=== PATIENT | female | born 1975 | race Caucasian/White ===

== ENCOUNTER 2017-09-07 22:03 | Emergency (ER) | payer OTHER, SELFPAY ==
[2017-09-07 22:58] LABS: Urine Blood 2+ (NEG); Urine Glucose NEGATIVE (NEG); Urine Protein NEGATIVE (NEG); Urine pH 5.5 (5.0-7.0)
[2017-09-07 23:00] LABS: Absolute Lymphocytes (CBC) 2.2 K/uL (0.7-4.9); Absolute Monocytes 0.5 K/uL (0.1-1.3); Absolute Neutrophil 6.2 K/uL (1.8-8.0); Basophils % 0.7 % (0-1.3); Eosinophils % 1.1 % (0-4.4); Hematocrit 43.1 % (36.0-45.0); Lymphocytes % 24.1 % (15.3-44.8); MCH 34.9 pg (27.0-35.0); MCV 100.8 fL (80-100); MPV 9.6 fL (7.6-11.3); Monocytes % 5.9 % (3.3-12.3); RBC Red Blood Cell Count 4.27 M/uL (3.86-4.86)
[2017-09-07 23:12] LABS: Potassium 3.2 mmol/L (3.5-5.1)
[2017-09-07] MEDS ORDERED: POTASSIUM 25 MEQ EFFERV TAB ONE (23:19)
--- NOTE | 2017-09-07 23:19 | EDPHYS ---
Physician Documentation [facility] Name: Lorraine Amato Age: 42 yrs Sex: Female : 1975 Arrival Date: 09/07/2017 Time: 22:09 Bed 8 Private MD: ED Physician Larry Kc HPI: 09/07 23:14 This 42 yrs old Female presents to ER via Ambulatory with complaints of pm1 Vaginal Bleeding. 23:14 The patient presents with vaginal bleeding that is light, with no clots. Onset: The pm1 symptoms/episode began/occurred 1 week(s) ago. Modifying factors: The symptoms are alleviated by nothing, the symptoms are aggravated by nothing. Associated signs and symptoms: Pertinent positives: cramping, Pertinent negatives: dysuria, fever, urinary frequency, vaginal discharge. Severity of symptoms: in the emergency department the symptoms have improved. The patient is sexually active. The patient has experienced similar episodes in the past, a few times. patient with possible onset of menopause. Patient with onset of menses last month that only last 2 days. Today patient's menses started off heavy with clots one week ago and now it is light. Patient reports cramping to suprapubic area. 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 - Social history:: Smoking status: Patient uses tobacco products, smokes 1.5 packs per day. - Ebola Screening: : No symptoms or risks identified at this time. ROS: 23:14 Positive for vaginal bleeding, menstrual abnormality, Negative for flank pain, pm1 burning with urination. 23:14 Constitutional: Negative for fever, chills, and weight loss, Eyes: Negative for injury, pain, redness, and discharge, ENT: Negative for injury, pain, and discharge, Neck: Negative for injury, pain, and swelling, Cardiovascular: Negative for chest pain, palpitations, and edema, Respiratory: Negative for shortness of breath, cough, wheezing, and pleuritic chest pain. 23:14 Back: Negative for injury and pain, : Negative for injury, bleeding, discharge, and swelling, MS/Extremity: Negative for injury and deformity, Skin: Negative for injury, rash, and discoloration, Neuro: Negative for headache, weakness, numbness, tingling, and seizure. 23:14 Abdomen/GI: Positive for abdominal cramps, of the suprapubic area, Negative for nausea, vomiting, and diarrhea. Exam: 23:14 Constitutional: This is a well developed, well nourished patient who is awake, alert, pm1 and in no acute distress. Head/Face: Normocephalic, atraumatic. Neck: Trachea midline, no thyromegaly or masses palpated, and no cervical lymphadenopathy. Supple, full range of motion without nuchal rigidity, or vertebral point tenderness. No Meningismus. Chest/axilla: Normal chest wall appearance and motion. Nontender with no deformity. No lesions are appreciated. Cardiovascular: Regular rate and rhythm with a normal S1 and S2. No gallops, murmurs, or rubs. Normal PMI, no JVD. No pulse deficits. Respiratory: Lungs have equal breath sounds bilaterally, clear to auscultation and percussion. No rales, rhonchi or wheezes noted. No increased work of breathing, no retractions or nasal flaring. Abdomen/GI: Soft, non-tender, with normal bowel sounds. No distension or tympany. No guarding or rebound. No evidence of tenderness throughout. Back: No spinal tenderness. No costovertebral tenderness. Full range of motion. Skin: Warm, dry with normal turgor. Normal color with no rashes, no lesions, and no evidence of cellulitis. MS/ Extremity: Pulses equal, no cyanosis. Neurovascular intact. Full, normal range of motion. 23:14 Neuro: Orientation: is normal, Motor: is normal, moves all fours, Gait: is steady, at a normal pace, without difficulty. Vital Signs: 22:30 BP 146 / 96; Pulse 92; Resp 18; Temp 99.2(O); Pulse Ox 97% on R/A; Weight 86.18 kg; tl2 Height 5 ft. 0 in. (152.40 cm); Pain 8/10; 23:39 BP 140 / 87; Pulse 78; Resp 16; Temp 99; Pulse Ox 98% on R/A; Pain 0/10; tl1 22:30 Body Mass Index 37.11 (86.18 kg, 152.40 cm) tl2 MDM: 22:20 Patient medically screened. pm1 23:18 Data reviewed: vital signs. Data interpreted: Pulse oximetry: on room air is 97 %. pm1 Interpretation: normal. Counseling: I had a detailed discussion with the patient and/or guardian regarding: the historical points, exam findings, and any diagnostic results supporting the discharge/admit diagnosis, lab results, the need for outpatient follow up, for definitive care, an OB/Gyne specialist, to return to the emergency department if symptoms worsen or persist or if there are any questions or concerns that arise at home. 09/07 22:34 Order name: Urine Dipstick--Ancillary (enter results); Complete Time: 23:13 ms 09/07 22:34 Order name: Urine --Ancillary (enter results); Complete Time: 23:13 ms 09/07 22:39 Order name: Basic Metabolic Panel; Complete Time: 23:13 pm1 09/07 22:39 Order name: CBC with Diff; Complete Time: 23:13 pm1 09/07 22:39 Order name: IV Saline Lock; Complete Time: 22:49 pm1 09/07 22:39 Order name: Labs collected and sent; Complete Time: 22:49 pm1 Administered Medications: 23:18 Drug: Potassium Effervescent Tablet 50 mEq Route: PO; tl2 23:38 Follow up: Response: No adverse reaction; No change in condition tl1 23:23 Drug: TORadol 30 mg Route: IVP; Site: right antecubital; tl2 23:36 Follow up: Response: No adverse reaction; Pain is decreased tl1 23:36 Not Given (Patient Refused): [place] 5 mg-325 mg 1 tabs PO once tl1 Disposition: 09/08 07:37 Co-signature as Attending Physician, Larry Kc MD I agree with the assessment and carmen plan of care. Disposition: 09/07/17 23:19 Discharged to Home. Impression: Abnormal uterine and vaginal bleeding, unspecified. - Condition is Stable. - Discharge Instructions: Abnormal Uterine Bleeding. - Prescriptions for Tylenol- Codeine #3 300-30 mg Oral Tablet - take 2 tablets by ORAL route every 6 hours As needed; 20 tablet. - Medication Reconciliation Form, Thank You Letter, Antibiotic Education, Prescription Opioid Use form. - Follow up: Emergency Department; When: As needed; Reason: Worsening of condition. Follow up: Skip Bourgeois MD; When: 2 - 3 days; Reason: Recheck today's complaints, Continuance of care, Re-evaluation by your physician. - Problem is new. - Symptoms have improved. Signatures: Dispatcher [employer] EDMS Larry Kc MD MD cha Lasagna, Tonya, RN RN tl1 Cem Gomez NP RADIAGRAPH OPERATOR pm1 Soumya Kumar RN RN tl2 Corrections: (The following items were deleted from the chart) 09/07 23:41 23:19 09/07/2017 23:19 Discharged to Home. Impression: Abnormal uterine and vaginal tl1 bleeding, unspecified. Condition is Stable. Forms are Medication Reconciliation Form, Thank You Letter, Antibiotic Education, Prescription Opioid Use. Follow up: Emergency Department; When: As needed; Reason: Worsening of condition. Follow up: Skip Bourgeois; When: 2 - 3 days; Reason: Recheck today's complaints, Continuance of care, Re-evaluation by your physician. Problem is new. Symptoms have improved. pm1
--- NOTE | 2017-09-07 23:19 | ER ---
Nurse's Notes [facility] Name: Lorraine Amato Age: 42 yrs Sex: Female : 1975 Arrival Date: 09/07/2017 Time: 22:09 Bed 8 Private MD: Diagnosis: Abnormal uterine and vaginal bleeding, unspecified Presentation: 09/07 22:28 Presenting complaint: Patient states: My period in July was late and it was very light tl2 which is abnormal. My period in August has been lasting for 2 weeks and I was bleeding really heavy and it was dark. The bleeding has slowed down but now I'm having pain here (suprapubic) that's constant. Transition of care: patient was not received from another setting of care. Onset of symptoms was September 05, 2017. Risk Assessment: Do you want to hurt yourself or someone else? Patient reports no desire to harm self or others. Initial Sepsis Screen: Does the patient meet any 2 criteria? No. Patient's initial sepsis screen is negative. Does the patient have a suspected source of infection? No. Patient's initial sepsis screen is negative. Care prior to arrival: None. 22:28 Method Of Arrival: Ambulatory tl2 22:28 Acuity: DON 3 tl2 Triage Assessment: 22:30 General: Appears in no apparent distress. uncomfortable, Behavior is calm, cooperative, tl2 appropriate for age. Pain: Complains of pain in suprapubic area Pain does not radiate. Pain currently is 8 out of 10 on a pain scale. Quality of pain is described as pressure, Is continuous. Neuro: Level of Consciousness is awake, alert, obeys commands, Oriented to person, place, time, situation. Cardiovascular: Denies chest pain. Respiratory: Airway is patent Respiratory effort is even, unlabored, Respiratory pattern is regular, symmetrical. GI: No signs and/or symptoms were reported involving the gastrointestinal system. : Reports vaginal bleeding that is brown, moderate flow, Denies pain. Derm: Skin is pink, warm \T\ dry. 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 - Social history:: Smoking status: Patient uses tobacco products, smokes 1.5 packs per day. - Ebola Screening: : No symptoms or risks identified at this time. Screenin:32 Abuse screen: Denies threats or abuse. Nutritional screening: No deficits noted. tl2 Tuberculosis screening: No symptoms or risk factors identified. Fall Risk None identified. Assessment: 22:32 General: see triage assessment. tl2 23:40 Reassessment: Patient and/or family updated on plan of care and expected duration. Pain tl1 level reassessed. Patient is alert, oriented x 3, equal unlabored respirations, skin warm/dry/pink. Patient denies pain at this time. Patient states feeling better. Patient states symptoms have improved. Vital Signs: 22:30 BP 146 / 96; Pulse 92; Resp 18; Temp 99.2(O); Pulse Ox 97% on R/A; Weight 86.18 kg; tl2 Height 5 ft. 0 in. (152.40 cm); Pain 8/10; 23:39 BP 140 / 87; Pulse 78; Resp 16; Temp 99; Pulse Ox 98% on R/A; Pain 0/10; tl1 22:30 Body Mass Index 37.11 (86.18 kg, 152.40 cm) tl2 ED Course: 22:09 Patient arrived in ED. es 22:20 Cem Gomez NP is PHCP. pm1 22:20 Larry Kc MD is Attending Physician. pm1 22:29 Triage completed. tl2 22:30 Arm band placed on right wrist. tl2 22:32 Patient has correct armband on for positive identification. Placed in gown. Bed in low tl2 position. Call light in reach. Side rails up X 1. 22:49 Soumya Kumar RN is Primary Nurse. tl2 22:49 Inserted saline lock: 22 gauge in right antecubital area, using aseptic technique. tl2 Blood collected. 23:18 Skip Bourgeois MD is Referral Physician. pm1 23:39 No provider procedures requiring assistance completed. IV discontinued, intact, tl1 bleeding controlled, No redness/swelling at site. Pressure dressing applied. Administered Medications: 23:18 Drug: Potassium Effervescent Tablet 50 mEq Route: PO; tl2 23:38 Follow up: Response: No adverse reaction; No change in condition tl1 23:23 Drug: TORadol 30 mg Route: IVP; Site: right antecubital; tl2 23:36 Follow up: Response: No adverse reaction; Pain is decreased tl1 23:36 Not Given (Patient Refused): [place] 5 mg-325 mg 1 tabs PO once tl1 Outcome: 23:19 Discharge ordered by MD. pm1 23:40 Discharged to home ambulatory, with family. tl1 23:40 Condition: good 23:40 Discharge instructions given to patient, Instructed on discharge instructions, follow up and referral plans. medication usage, Demonstrated understanding of instructions, follow-up care, medications, Prescriptions given X 1. 23:41 Patient left the ED. tl1 Signatures: Mckenna Hastings Tonya RN RN tl1 Cem Gomez, ANDIE SEE SUPERVISOR pm1 Soumya Kumar RN RN tl2
[2017-09-07] MEDS ORDERED: KETOROLAC 30 MG/ML INJ ONE (23:24)
== END 2017-09-07 23:41 | disposition home or self-care (01) ==
LOC: ER 22:03
DX: N93.9 Abnormal uterine and vaginal bleeding, unspecified (principal); F17.210 Nicotine dependence, cigarettes, uncomplicated
CPT/HCPCS: 36415; 80048; 81003; 81025; 85025; 96374; 99284

== ENCOUNTER 2018-11-20 18:33 | Observation (INO) | payer SELFPAY ==
[2018-11-20] MEDS ORDERED: METOPROLOL TAR 25 MG TAB ONE (19:14)
[2018-11-20] MEDS ORDERED: MORPHINE 4 MG/ML SYR ONE (19:14)
[2018-11-20] MEDS ORDERED: ASPIRIN 81 MG CHEWABLE TABLET ONE (19:14)
[2018-11-20] MEDS ORDERED: ONDANSETRON 4 MG/2 ML VIAL ONE (19:14)
[2018-11-20] MEDS ORDERED: ENOXAPARIN 100 MG/ML SYR SQ ONE (19:15)
[2018-11-20] MEDS ORDERED: FAMOTIDINE 20 MG/2 ML VIAL IV ONE (19:15)
--- NOTE | 2018-11-20 19:28 | EDPHYS ---
Physician Documentation [facility] Name: Lorraine Amato Age: 43 yrs Sex: Female : 1975 Arrival Date: 11/20/2018 Time: 18:36 Bed 7 Private MD: ED Physician Larry Kc HPI: 11/20 19:10 This 43 yrs old Female presents to ER via Ambulatory with complaints of Chest carmen Tightness. 19:10 The patient or guardian reports chest pain that is located primarily in the substernal carmen area. Onset: this morning. The pain radiates to Associated signs and symptoms: Pertinent positives: dizziness, lightheadedness. The chest pain is described as a heaviness, a pressure. Duration: The patient or guardian reports a single episode, that is still ongoing. Modifying factors: The symptoms are alleviated by nothing. the symptoms are aggravated by nothing. Severity of pain: At its worst the pain was moderate in the emergency department the pain has improved mildly. The patient has not experienced similar symptoms in the past. 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 - Social history:: Smoking status: Patient uses tobacco products, smokes one pack cigarettes per day. - Ebola Screening: : Patient denies travel to an Ebola-affected area in the 21 days before illness onset. - Family history:: not pertinent. ROS: 19:10 Constitutional: Negative for fever, chills, and weight loss, Eyes: Negative for injury, carmen pain, redness, and discharge, ENT: Negative for injury, pain, and discharge, Neck: Negative for injury, pain, and swelling, Abdomen/GI: Negative for abdominal pain, nausea, vomiting, diarrhea, and constipation, Back: Negative for injury and pain, : Negative for injury, bleeding, discharge, and swelling, MS/Extremity: Negative for injury and deformity, Skin: Negative for injury, rash, and discoloration, Neuro: Negative for headache, weakness, numbness, tingling, and seizure, Psych: Negative for depression, anxiety, suicide ideation, homicidal ideation, and hallucinations, Allergy/Immunology: Negative for hives, rash, and allergies, Endocrine: Negative for neck swelling, polydipsia, polyuria, polyphagia, and marked weight changes, Hematologic/Lymphatic: Negative for swollen nodes, abnormal bleeding, and unusual bruising. 19:10 Cardiovascular: Positive for chest pain. 19:10 Respiratory: Positive for cough, shortness of breath, at rest. Exam: 19:10 Constitutional: This is a well developed, well nourished patient who is awake, alert, carmen and in no acute distress. Head/Face: Normocephalic, atraumatic. Eyes: Pupils equal round and reactive to light, extra-ocular motions intact. Lids and lashes normal. Conjunctiva and sclera are non-icteric and not injected. Cornea within normal limits. Periorbital areas with no swelling, redness, or edema. ENT: Nares patent. No nasal discharge, no septal abnormalities noted. Tympanic membranes are normal and external auditory canals are clear. Oropharynx with no redness, swelling, or masses, exudates, or evidence of obstruction, uvula midline. Mucous membranes moist. Neck: Trachea midline, no thyromegaly or masses palpated, and no cervical lymphadenopathy. Supple, full range of motion without nuchal rigidity, or vertebral point tenderness. No Meningismus. Chest/axilla: Normal chest wall appearance and motion. Nontender with no deformity. No lesions are appreciated. Cardiovascular: Regular rate and rhythm with a normal S1 and S2. No gallops, murmurs, or rubs. Normal PMI, no JVD. No pulse deficits. Respiratory: Lungs have equal breath sounds bilaterally, clear to auscultation and percussion. No rales, rhonchi or wheezes noted. No increased work of breathing, no retractions or nasal flaring. Abdomen/GI: Soft, non-tender, with normal bowel sounds. No distension or tympany. No guarding or rebound. No evidence of tenderness throughout. Back: No spinal tenderness. No costovertebral tenderness. Full range of motion. Skin: Warm, dry with normal turgor. Normal color with no rashes, no lesions, and no evidence of cellulitis. MS/ Extremity: Pulses equal, no cyanosis. Neurovascular intact. Full, normal range of motion. Neuro: Awake and alert, GCS 15, oriented to person, place, time, and situation. Cranial nerves II-XII grossly intact. Motor strength 5/5 in all extremities. Sensory grossly intact. Cerebellar exam normal. Normal gait. Psych: Awake, alert, with orientation to person, place and time. Behavior, mood, and affect are within normal limits. Vital Signs: 18:50 BP 146 / 80; Pulse 88; Resp 18; Temp 98.4(TE); Pulse Ox 98% on R/A; Weight 89.81 kg tw2 (R); Height 5 ft. 0 in. (152.40 cm) (R); Pain 6/10; 19:30 BP 133 / 57; Pulse 75; Resp 16; Pulse Ox 100% on R/A; aa1 21:09 BP 111 / 70; Pulse 52; Resp 18; Pulse Ox 98% on R/A; Pain 3/10; aa1 22:00 BP 103 / 67; Pulse 55; Resp 16; Temp 98.0; Pulse Ox 98% on R/A; Pain 5/10; aa1 18:50 Body Mass Index 38.67 (89.81 kg, 152.40 cm) tw2 MDM: 19:03 Patient medically screened. [facility] 19:20 Data reviewed: vital signs, nurses notes, lab test result(s), EKG, radiologic studies, [facility] CT scan, plain films. 11/20 19:10 Order name: Basic Metabolic Panel; Complete Time: 19:57 [facility] 11/20 19:10 Order name: CBC with Diff; Complete Time: 20:43 [facility] 11/20 19:10 Order name: LFT's; Complete Time: 19:57 [facility] 11/20 19:10 Order name: Magnesium; Complete Time: 19:57 [facility] 11/20 19:10 Order name: NT PRO-BNP; Complete Time: 19:57 [facility] 11/20 19:10 Order name: PT-INR; Complete Time: 20:43 [facility] 11/20 19:10 Order name: Troponin (emerg Dept Use Only); Complete Time: 19:57 [facility] 11/20 19:10 Order name: XRAY Chest (1 view); Complete Time: 20:43 [facility] 11/20 19:10 Order name: Lipase; Complete Time: 19:57 [facility] 11/20 19:10 Order name: UDS; Complete Time: 22:33 [facility] 11/20 19:10 Order name: CT Aorta for Dissection; Complete Time: 22:33 [facility] 11/20 20:29 Order name: Urine Dipstick--Ancillary (enter results); Complete Time: 20:43 [facility] 11/20 20:29 Order name: Urine --Ancillary (enter results); Complete Time: 20:43 [facility] 11/20 19:10 Order name: EKG; Complete Time: 19:11 [facility] 11/20 19:10 Order name: Cardiac monitoring; Complete Time: 20:02 [facility] 11/20 19:10 Order name: EKG - Nurse/Tech; Complete Time: 20:02 [facility] 11/20 19:10 Order name: IV Saline Lock; Complete Time: 20:03 [facility] 11/20 19:10 Order name: Labs collected and sent; Complete Time: 20:03 [facility] 11/20 19:10 Order name: O2 Per Protocol; Complete Time: 20:03 [facility] 11/20 19:10 Order name: O2 Sat Monitoring; Complete Time: 20:04 [facility] 11/20 19:10 Order name: Urine Dipstick-Ancillary (obtain specimen); Complete Time: 20:02 [facility] 11/20 19:10 Order name: Urine Test (obtain specimen); Complete Time: 20:02 [facility] Administered Medications: 19:20 Drug: Aspirin Chewable Tablet 324 mg Route: PO; aa1 20:20 Follow up: Response: No adverse reaction aa1 19:20 Drug: Lovenox 1 mg/kg Route: Sub-Q; Site: left lower abdomen; aa1 20:20 Follow up: Response: No adverse reaction aa1 19:20 Drug: Lopressor 25 mg Route: PO; aa1 20:20 Follow up: Response: No adverse reaction; No change in condition aa1 19:20 Drug: Pepcid 20 mg Route: IVP; Site: left antecubital; aa1 20:20 Follow up: Response: No adverse reaction; Pain is decreased aa1 19:21 Drug: Zofran 4 mg Route: IVP; Site: left antecubital; aa1 20:20 Follow up: Response: No adverse reaction aa1 19:23 Drug: morphine 4 mg Route: IVP; Site: left antecubital; aa1 20:20 Follow up: Response: No adverse reaction; Pain is decreased aa1 Disposition: 11/20/18 19:27 Hospitalization ordered by Vicente Edmondson for Observation. Preliminary diagnosis are Chest pain, unspecified, Essential (primary) hypertension, Dyspnea, Solitary pulmonary nodule - 15 mm. - Bed requested for Telemetry/MedSurg (observation). - Status is Observation. aa1 - Condition is Fair. - Problem is new. - Symptoms have improved. UTI on Admission? No Signatures: Dispatcher [employer] EDMS Demi Pneny RN RN aa1 Larry Kc MD MD cha Martinez, Eric em1 John Harper PA PA [id number] Nahed Booker RN RN tw2 Corrections: (The following items were deleted from the chart) 20:55 19:27 Hospitalization Ordered by Vicente Edmondson for Observation. Preliminary diagnosis carmen is Chest pain, unspecified; Essential (primary) hypertension. Bed requested for Telemetry/MedSurg (observation). Status is Observation. Condition is Fair. Problem is new. Symptoms have improved. UTI on Admission? No. carmen 21:44 20:55 11/20/2018 19:27 Hospitalization Ordered by Vicente Edmondson for Observation. em1 Preliminary diagnosis is Chest pain, unspecified; Essential (primary) hypertension; Dyspnea; Solitary pulmonary nodule - 15 mm. Bed requested for Telemetry/MedSurg (observation). Status is Observation. Condition is Fair. Problem is new. Symptoms have improved. UTI on Admission? No. carmen 22:44 21:44 11/20/2018 19:27 Hospitalization Ordered by Vicente Edmondson for Observation. aa1 Preliminary diagnosis is Chest pain, unspecified; Essential (primary) hypertension; Dyspnea; Solitary pulmonary nodule - 15 mm. Bed requested for Telemetry/MedSurg (observation). Status is Observation. Condition is Fair. Problem is new. Symptoms have improved. UTI on Admission? No. em1
--- NOTE | 2018-11-20 19:28 | ER ---
Nurse's Notes [facility] Name: Lorraine Amato Age: 43 yrs Sex: Female : 1975 Arrival Date: 11/20/2018 Time: 18:36 Bed 7 Private MD: Diagnosis: Chest pain, unspecified;Essential (primary) hypertension;Dyspnea;Solitary pulmonary nodule-15 mm Presentation: 11/20 18:49 Presenting complaint: Patient states: when i got up this morning my chest felt tight tw2 and it was hard to breathe, i have gotten more and more short of breath throughout the day, i feel like i cant get a good breath, it feels like something heavy is sitting on me. Transition of care: patient was not received from another setting of care. Onset of symptoms was November 20, 2018. Risk Assessment: Do you want to hurt yourself or someone else? Patient reports no desire to harm self or others. Initial Sepsis Screen: Does the patient meet any 2 criteria? No. Patient's initial sepsis screen is negative. Does the patient have a suspected source of infection? No. Patient's initial sepsis screen is negative. Care prior to arrival: None. 18:49 Method Of Arrival: Ambulatory tw2 18:49 Acuity: DON 3 tw2 Triage Assessment: 18:50 General: Appears uncomfortable, obese, Behavior is calm, cooperative, appropriate for tw2 age. Pain: Complains of pain in xyphoid area and mid-sternal area. Pain: Pain radiates to back. Cardiovascular: Reports chest pain, shortness of breath. FLITCH HANGER: 18:50 LMP 10/18/2018 tw2 Historical: - Allergies: 18:53 MAU INHIBITORS; tw2 - Home Meds: 18:53 None [Active]; tw2 - PMHx: 18:53 Hypertension; heart palpitations; tw2 - PSHx: 18:53 ; Essure implant in fallopian tubes; tw2 - Immunization history:: Adult Immunizations. - Social history:: Smoking status: Patient uses tobacco products, smokes one pack cigarettes per day. - Ebola Screening: : Patient denies travel to an Ebola-affected area in the 21 days before illness onset. - Family history:: not pertinent. Screenin:15 Abuse screen: Denies threats or abuse. Denies injuries from another. Nutritional aa1 screening: No deficits noted. Tuberculosis screening: No symptoms or risk factors identified. Fall Risk None identified. Assessment: 19:15 General: Appears in no apparent distress. comfortable, Behavior is calm, cooperative, aa1 appropriate for age. Pain: Complains of pain in mid-sternal area Pain radiates to posterior chest Pain began this morning Is continuous. Neuro: Level of Consciousness is awake, alert, obeys commands, Oriented to person, place, time, situation, Moves all extremities. Full function Gait is steady, Speech is normal. Cardiovascular: Reports chest pain, shortness of breath, Heart tones S1 S2 present Capillary refill < 3 seconds Clubbing of nail beds is absent JVD is absent Patient's skin is warm and dry. Rhythm is regular Chest pain is described as vague, quality is pressure, radiates back episodes are continuous. Respiratory: Reports shortness of breath at rest Airway is patent Respiratory effort is even, unlabored, Respiratory pattern is regular, symmetrical, Breath sounds are clear bilaterally. Onset: The symptoms/episode began/occurred this morning, the patient has mild shortness of breath. GI: No signs and/or symptoms were reported involving the gastrointestinal system. : No signs and/or symptoms were reported regarding the genitourinary system. EENT: No signs and/or symptoms were reported regarding the EENT system. Derm: Skin is intact, is healthy with good turgor, Skin is pink, warm \\T\\ dry. Musculoskeletal: Circulation, motion, and sensation intact. Capillary refill < 3 seconds. 20:03 Reassessment: Patient appears in no apparent distress at this time. Patient and/or aa1 family updated on plan of care and expected duration. Pain level reassessed. Patient is alert, oriented x 3, equal unlabored respirations, skin warm/dry/pink. Pt taken to CT at this time. 20:57 Reassessment: Patient appears in no apparent distress at this time. Patient and/or aa1 family updated on plan of care and expected duration. Pain level reassessed. Patient is alert, oriented x 3, equal unlabored respirations, skin warm/dry/pink. Dr. Edmondson at bedside assessing pt. 21:45 Reassessment: Patient appears in no apparent distress at this time. Patient and/or aa1 family updated on plan of care and expected duration. Pain level reassessed. Patient is alert, oriented x 3, equal unlabored respirations, skin warm/dry/pink. Awaiting admission to floor Patient states symptoms have improved. 22:09 Reassessment: Report called to PATRICK Lu. ao 22:35 Reassessment: Patient appears in no apparent distress at this time. Patient is alert, aa1 oriented x 3, equal unlabored respirations, skin warm/dry/pink. Entered room to take pt upstairs and pt reports she does not understand why she is being admitted. Updated pt on POC for continued monitoring in hospital with repeat testing and consults with physicians as well as reevalution in the morning. Pt states, "Well I don't have insurance and I can't afford a big hospital bill and if y'all don't know what's wrong with me then I don't know why I need to stay in the hospital so y'all can rack up a big bill." Informed pt that I would contact Dr. Edmondson regarding her concerns. Physician notified of pt's wish to sign out AMA and reports he will come speak with her. Informed pt Dr. Edmondson would be coming back to speak with her again to explain necessity of admission and answer any questions and pt states, "I don't want to speak to anyone else. Just take my IV out so I can go home." IV dc'd and pt signed AMA form. Dr. Edmondson notified and per his orders pt to be dc'd as eloped and not AMA since he was unable to speak with pt prior to her leaving. Vital Signs: 18:50 BP 146 / 80; Pulse 88; Resp 18; Temp 98.4(TE); Pulse Ox 98% on R/A; Weight 89.81 kg tw2 (R); Height 5 ft. 0 in. (152.40 cm) (R); Pain 6/10; 19:30 BP 133 / 57; Pulse 75; Resp 16; Pulse Ox 100% on R/A; aa1 21:09 BP 111 / 70; Pulse 52; Resp 18; Pulse Ox 98% on R/A; Pain 3/10; aa1 22:00 BP 103 / 67; Pulse 55; Resp 16; Temp 98.0; Pulse Ox 98% on R/A; Pain 5/10; aa1 18:50 Body Mass Index 38.67 (89.81 kg, 152.40 cm) tw2 ED Course: 18:36 Patient arrived in ED. mr 18:46 Arm band placed on. EKG completed in triage. Results shown to MD. tw2 18:50 Triage completed. tw2 18:53 Patient maintains SpO2 saturation greater than 95% on room air. tw2 19:01 Kathia Chambers, PATRICK is Primary Nurse. sv 19:03 Larry Kc MD is Attending Physician. carmen 19:12 Radiology exam delayed due to lab results not completed at this time. (BUN/Creatinine). vm2 19:15 Patient has correct armband on for positive identification. Placed in gown. Bed in low aa1 position. Call light in reach. Side rails up X2. investment advisor on. Pulse ox on. NIBP on. 19:20 Inserted saline lock: 20 gauge in left antecubital area, using aseptic technique. aa1 19:26 Vicente Edmondson is Hospitalizing Provider. carmen 19:41 XRAY Chest (1 view) In Process Unspecified. EDMS 19:43 Primary Nurse role handed off by Kathia Chambers RN sv 19:48 Radiology exam delayed due to lab results not completed at this time. (BUN/Creatinine). vm2 19:58 Demi Penny, PATRICK is Primary Nurse. aa1 20:01 Urine collected: clean catch specimen, clear. aa1 20:20 CT Aorta for Dissection In Process Unspecified. EDMS 22:09 No provider procedures requiring assistance completed. Patient admitted, IV remains in ao place. Administered Medications: 19:20 Drug: Aspirin Chewable Tablet 324 mg Route: PO; aa1 20:20 Follow up: Response: No adverse reaction aa1 19:20 Drug: Lovenox 1 mg/kg Route: Sub-Q; Site: left lower abdomen; aa1 20:20 Follow up: Response: No adverse reaction aa1 19:20 Drug: Lopressor 25 mg Route: PO; aa1 20:20 Follow up: Response: No adverse reaction; No change in condition aa1 19:20 Drug: Pepcid 20 mg Route: IVP; Site: left antecubital; aa1 20:20 Follow up: Response: No adverse reaction; Pain is decreased aa1 19:21 Drug: Zofran 4 mg Route: IVP; Site: left antecubital; aa1 20:20 Follow up: Response: No adverse reaction aa1 19:23 Drug: morphine 4 mg Route: IVP; Site: left antecubital; aa1 20:20 Follow up: Response: No adverse reaction; Pain is decreased aa1 Outcome: 19:27 Decision to Hospitalize by Provider. carmen 22:10 Admitted to Med/surg accompanied by tech, room 216, Report called to PATRICK Lu 22:10 Condition: stable 22:10 Instructed on the need for admit. 22:44 Patient left the ED. aa1 Signatures: Dispatcher [employer] EDMS Kathia Chambers RN RN sv Autenrieth, Alissa, RN RN aa1 Larry Kc MD MD cha Rivera, Mary mr Ortiz, Alex, RN RN ao Wise, Tara, RN RN 2 Andra Mcge[facility]
[2018-11-20 19:49] LABS: ALT/SGPT 19 U/L (12-78); AST/SGOT 10 U/L (15-37); Albumin 3.6 g/dL (3.4-5.0); Alkaline Phosphatase 85 U/L (45-117); BUN Blood Urea Nitrogen 10 mg/dL (7-18); Basophils % 1.4 % (0-1.3); Bicarbonate 28 mmol/L (21-32); Bilirubin Direct < 0.1 mg/dL (0-0.2); Bilirubin Total 0.2 mg/dL (0.2-1.0); Glucose Level 95 mg/dL (74-106); Hematocrit 41.2 % (36.0-45.0); Lipase 122 U/L (73-393); Lymphocytes % 27.6 % (15.3-44.8); MPV 9.7 fL (7.6-11.3); Magnesium 2.3 mg/dL (1.8-2.4); NT PRO-BNP 159 pg/mL (<125); Potassium 3.9 mmol/L (3.5-5.1); Protein, Total 6.9 g/dL (6.4-8.2); RBC Red Blood Cell Count 4.07 M/uL (3.86-4.86); Sodium Level 140 mmol/L (136-145); Troponin (Emerg Dept Use Only) < 0.02 ng/mL (0.0-0.045)
[2018-11-20 19:50] LABS: Protime INR 0.89
--- NOTE | 2018-11-20 20:20 | RAD REPORT ---
EXAM DESCRIPTION: RAD - Chest Single View - 11/20/2018 7:41 pm CLINICAL HISTORY: Chest tightness, difficulty breathing, shortness of breath, hypertension COMPARISON: None. TECHNIQUE: AP portable chest image was obtained 1936 hours . FINDINGS: Lungs are clear. Heart and vasculature are normal. No measurable pleural effusion and no p neumothorax. No acute bony abnormality seen. No acute aortic findings suspected. IMPRESSION: No acute cardiopulmonary process.
[2018-11-20 20:35] LABS: Urine Blood NEGATIVE (NEG); Urine Glucose NEGATIVE (NEG); Urine Protein NEGATIVE (NEG)
--- NOTE | 2018-11-20 20:48 | RAD REPORT ---
EXAM DESCRIPTION: CT - Angio Aorta For Dissection - 11/20/2018 8:20 pm CLINICAL HISTORY: Dissection;Chest pain COMPARISON: Chest exam same date TECHNIQUE: Dynamically enhanced 3 mm thick images of the chest, abdomen, and upper pelvis were obtai bull during administration of approximately 150mL Isovue 370 IV contrast. Sagittal and coronal reconst ruction images were generated using MIP and reviewed. Exam utilizes a protocol to evaluate entire cou rse of the aorta. All CT scans are performed using dose optimization technique as appropriate and may include automated exposure control or mA/KV adjustment according to patient size. FINDINGS: Aorta is normal in diameter with no dissection or other acute aortic findings. Reconstruct ion images show no significant findings. Pulmonary arteries are normal as well. No cardiomegaly, pericardial thickening or pericardial effusio n. In the anteromedial lower right lung field (image 46/206) there is a 15 millimeter pulmonary nodule s howing slightly irregular margins. No pleural thickening, pleural effusion or pneumothorax. No other nodule or mass identified. Scarring or atelectasis changes are present in the anterior left lung base . No abnormal mediastinal or hilar mass or lymphadenopathy seen. No chest wall mass or abnormal axillar y lymphadenopathy. Celiac, SMA and renal arteries show no suspicious findings. Solid abdominal viscera and bowel show no significant findings. Fatty infiltration of the liver is present. No mass or abnormal lymphadenopat hy. No free air, free fluid or inflammatory stranding. No urinary bladder abnormality. Uterus and ov tiffani show no suspicious findings. IMPRESSION: A 15 millimeter suspicious pulmonary nodule is seen in the anterior medial right lung fi eld adjacent to the heart. No prior imaging available for correlation. Follow-up CT imaging can be performed in 3 months to monitor for stability. PET-CT imaging could be p erformed to evaluate metabolic activity. Proximity to the heart would preclude percutaneous biopsy. N o additional findings to elevate probability of malignancy. Negative CT scan of the aorta. No other significant findings on chest, abdomen and upper pelvis examination.
[2018-11-20 20:49] LABS: Barbiturates NEGATIVE (NEGATIVE); Benzodiazepines NEGATIVE (NEGATIVE); Cocaine NEGATIVE (NEGATIVE); METHAMPHETAM NEGATIVE (NEGATIVE); Methadone NEGATIVE (NEGATIVE); Opiates NEGATIVE (NEGATIVE); Phencyclidine NEGATIVE (NEGATIVE); THC Cannibis NEGATIVE (NEGATIVE)
--- NOTE | 2018-11-20 21:31 | P.HP ---
Certification for Inpatient Patient admitted to: Observation With expected LOS: <2 Midnights Patient will require the following post-hospital care: None Practitioner: I am a practitioner with admitting privileges, knowledge of patient current condition, hospital course, and medical plan of care. Services: Services provided to patient in accordance with Admission requirements found in Title 42 Section 412.3 of the Code of Federal Regulations Patient History Date of Service: 11/22/18 Reason for admission: Chest pain History of Present Illness: 43-year-old female with no known past medical history presented to the emergency department with a complaint of chest pressure and chest pain of onset this morning. Patient described tightness in the chest, along with shortness of breath, intermittent in nature, maximum intensity is 7/10, radiates to her back, no aggravating factors or relieving factors. Patient is a current smoker , smokes about 1 pack of cigarettes per day. Reports a history of premature coronary artery disease in her family. She stated her father had a heart attack at the age of 20, and since then has had multiple cardiac stent and open- heart surgery. She also reported her father has a history of blood clotting problem, and had blood clots in his legs. Patient was asymptomatic during my examination in the ED. Her initial troponin is negative. EKG demonstrates sinus arrhythmia, no ischemic changes. CTA aorta reported as suspicious pulmonary nodule but no pulmonary embolism. Patient is placed under observation for acute coronary syndrome rule out. Allergies No Known Allergies Allergy (Unverified 09/07/17 23:45) Home medications list reviewed: Yes (None) - Past Medical/Surgical History -: None - Family History Father -: Heart disease, Stroke, Other (see notes) (DVT) - Social History Smoking Status: Heavy Tobacco smoker (>10 cigarettes/day) Alcohol use: Yes CD- Drugs: No Place of Residence: Home Review of Systems Other: General: No fever, no malaise, no unintentional weight loss. Eyes: No eye discharge, Respiratory: No cough. CVS: No palpitation, no lightheadedness. GI: No abdominal pain, no nausea no vomit, no constipation, no diarrhea. Genitourinary: No dysuria, no urinary frequency, no incontinence, no hematuria. Musculoskeletal: No joint pains, or joint swelling, no gait instability. Neurology: No headache, no asymmetric, weakness, no problem with swallowing. Except as documented, all other systems reviewed and negative. Physical Examination - Physical Exam General: Alert, In no apparent distress, Oriented x3 HEENT: Normocephalic, PERRLA, Mucous membr. moist/pink Neck: Supple, JVD not distended, No Thyromegaly Respiratory: Clear to auscultation bilaterally, Normal air movement Cardiovascular: No edema, Regular rate/rhythm, Irregular heart rate/rhythm Capillary refill: <2 Seconds Gastrointestinal: Normal bowel sounds, Soft and benign, Non-distended, No tenderness Musculoskeletal: No swelling, No erythema Integumentary: No rashes, No erythema Neurological: Normal strength at 5/5 x4 extr, Cranial nerves 3-12 intact - Studies Laboratory Data (last 24 hrs) 11/20/18 19:19: PT 10.5, INR 0.89 11/20/18 19:19: WBC 7.2, Hgb 14.2, Hct 41.2, Plt Count 199 11/20/18 19:19: Sodium 140, Potassium 3.9, BUN 10, Creatinine 1.06, Glucose 95, Magnesium 2.3, Total Bilirubin 0.2, AST 10 L, ALT 19, Alkaline Phosphatase 85, Lipase 122 Assessment and Plan - Problems (Diagnosis) (1) Chest pain Status: Acute (2) Tobacco use Status: Acute (3) Pulmonary nodule Status: Acute - Plan Place under observation Telemetry Trend troponin x3 Check lipid profile Start aspirin NTG p.r.n. Check TSH and free T4 Recommend CT/PET scan as outpatient given his risk factors for lung cancer ( heavy smoker) or CT chest follow up within 3 months for pulmonary nodule. Patient has been made aware of this follow up and stressed to her this is important. She voiced understanding this follow up. - Advance Directives Does patient have a Living Will: No Does patient have a Durable POA for Healthcare: No
[2018-11-21 00:55] VITALS: BP 111/70
[2018-11-21 01:02] VITALS: TEMP 97.5; O2SAT 99
--- NOTE | 2018-11-21 07:46 | P.PN ---
Date of Service: 11/21/18 ED nurse called and inform me patient does not want to be admitted and want to sign out against medical advice. I informed the nurse I am coming to see the patient and discuss the benefit of hospitalization for treatment, his risk of signing out AMA and convince him to stay for treatment. I went to the ED and nurse told me patient would not want to speak to me and already left.
--- NOTE | 2018-11-21 09:35 | EKG ---
Test Date: 2018-11-20 Test Time: 18:46:30 Manager Hair: EVA MEASUREMENT RESULTS: Intervals: Rate: 84 [place]: 118 QRSD: 82 QT: 374 QTc: 441 [place]: P: 41 [place]: 118 QRS: 18 T: 70 INTERPRETIVE STATEMENTS: Normal sinus rhythm with sinus arrhythmia Low voltage QRS Borderline ECG No previous ECG available for comparison Electronically Signed On 11-21-18 09:33:50 CDT by Jourdan Cha
== END 2018-11-20 22:42 | disposition left against medical advice (07) ==
LOC: ER 18:33 → ERHOLD 21:45 → 2ND 22:12
PROVIDERS: ADMIT Internal Medicine; ATTEND Internal Medicine
DX: R07.9 Chest pain, unspecified (principal); R91.1 Solitary pulmonary nodule; F17.210 Nicotine dependence, cigarettes, uncomplicated
CPT/HCPCS: 36415; 71045; 71275; 74175; 80048; 80076; 80307; 81003; 81025; 83690; 83735; 83880; 84484; 85025; 85610; 93005; 96372; 96374; 96375; 99285; G0378; J1650; J2405; Q9967